=== PATIENT | female | born 1985 | race Caucasian/White ===

== ENCOUNTER 2018-03-24 04:40 | Inpatient (IN) | payer MEDICAID ==
[~2018-03-24 04:40] MED LIST: Oxytocin/Normal Saline 30 UNIT/500 ML BAG ONE; Penicillin G Potassium 5,000,000 Unit Vial ONE
[2018-03-24] MEDS ORDERED: Lactated Ringers 1,000 ML IV SCH (04:45)
[2018-03-24] MEDS ORDERED: Penicillin G Potassium 5 MILLUNITS in Sodium Chloride 0.9% 100 ML IV ONE (05:41)
[2018-03-24] MEDS ORDERED: Misoprostol 400 MCG (4 X 100 MCG TAB) RECTAL PRN (06:34)
[2018-03-24] MEDS ORDERED: Zolpidem 5 MG Tab PO PRN (06:34)
[2018-03-24] MEDS ORDERED: Sodium Chloride 0.9% 10 ML Syringe FLUSH PRN (06:34)
[2018-03-24] MEDS ORDERED: Tranexamic Acid 1,000 MG in Sodium Chloride 0.9% 100 ML IV PRN (06:34)
[2018-03-24] MEDS ORDERED: Docusate Sodium 100 MG Cap PO PRN (06:34)
[2018-03-24] MEDS ORDERED: Benzocaine/Menthol 20%-0.5% Spray 56 GM Canister TOP PRN (06:34)
[2018-03-24] MEDS ORDERED: Acetaminophen 325 MG Tab PO PRN (06:34)
[2018-03-24] MEDS ORDERED: Carboprost Tromethamine 250 MCG/1 ML Amp IM PRN (06:34)
[2018-03-24] MEDS ORDERED: Simethicone 80 MG Tab.Chew PO PRN (06:34)
[2018-03-24] MEDS ORDERED: Oxytocin 10 Units/1 ML SDV IM PRN (06:34)
[2018-03-24] MEDS ORDERED: Oxytocin/Normal Saline 30 UNIT/500 ML BAG IV SCH (07:00)
--- NOTE | 2018-03-24 07:09 | DEL ---
DATE: 03/24/2018 LOCATION: [facility]. DISCUSSION: The patient has proceeded on quickly to complete dilation. She does have evidence of moderate meconium-stained fluid. heart tones remain category 1 with nice accelerations and moderate variability. The patient has been able to proceed on very nicely with a normal spontaneous vaginal delivery. There were no episiotomy and no lacerations. She did have a tight nuchal cord, and we do note that the tight nuchal cord was avulsed when we attempted to slip the cord over the neck, and therefore, we did just proceed onto expedite the vaginal delivery and then clamp the cord on the baby as well as on the patient shortly after delivery. She does have a viable baby boy with scores of 8 and 9 and the weight was later reported as 8 pounds 7 ounces. The baby was very thoroughly suctioned on the perineum as well as at delivery. As mentioned above, there were no episiotomy and no lacerations sustained. The placenta was spontaneous and intact. A sample of cord blood was obtained of course. The patient has tolerated the procedure well, and the patient and the mother remained very stable in the delivery room. The patient will be bottle feeding. The patient has seen Dr. Conway one time prenatally, and I understand that Dr. Conway will also be following the patient in the period. Estimated blood loss was approximately 250 mL. Sponge count and instrument count also were reported as correct. [facility] /[id number]
[2018-03-24] MEDS ORDERED: Diphtheria,Pertussis(Acell),Tetanus Vaccine 0.5 ML SDV IM ONE (07:39)
--- NOTE | 2018-03-24 08:09 | HP ---
LOCATION: [facility]. HISTORY OF PRESENT ILLNESS: This patient is a 32-year-old 7, para 4 patient, who comes to Labor and Delivery early in the morning of 03/24/2018. She does state that she had a large gush of fluid or spontaneous rupture of membranes at approximately 2:00 a.m. at home today. She does live in the [place] area I understand. She has had only 1 visit with this and that was with Dr. Conway at our clinic in [place] and that was in November. Those records are in the [facility] system. Those records revealed that she is immune to rubella and that she is GBS positive. She is also O positive and HIV negative. The patient intends to bottle feed. The patient has been taking vitamins and adhering to healthy nutrition. She denies any other problems with the that she is aware of; however, she has had only that 1 visit, has not been seen by any care providers elsewhere. She is in labor and is actually 7 cm dilated when she comes to Labor and Delivery floor. There is evidence of meconium-stained fluid. heart tones are category 1 with nice accelerations and moderate variability. The patient is actively toshia. PAST MEDICAL HISTORY: She denies any knowledge of heart, lung, liver, or kidney disease. PAST SURGICAL HISTORY: Previous surgery consists of herniorrhaphy and LEEP procedure. MEDICATIONS AT PRESENT: vitamins. ALLERGIES: None known. FAMILY HISTORY: Noncontributory. SOCIAL HISTORY: The patient is here with her other family members and this morning. She is a nonsmoker and denies the usage of any alcohol or street drugs during the . PHYSICAL EXAMINATION: Vital Signs: Admission blood pressures have been in the 153/94 to 96 range and 155/92 range, and we will continue to follow these blood pressures very closely. General: The patient does deny any headache incidentally. Lungs: Clear to A. Heart: Regular rhythm without murmur. Abdomen: Soft, gravid, and heart tones are category 1. Estimated weight is 8-1/2 pounds. There is negative CVA tenderness. Pelvic: Initial pelvic exam by the nurses reveals her to be 7 cm dilated with meconium present. My examination short time later reveals her to be completely dilated in Labor and Delivery, and actually, we have helped with gentle digital pressure push up on a small anterior cervical lip to make her completely dilated. Vertex was at +1 station when she began pushing. Extremities: Negative. IMPRESSION: This patient has an estimated date of delivery based on an earlier 18-week ultrasound of 03/28/2018. The patient would apparently be at approximately 39 weeks 3 days' gestation based on her 1 previous visit. We do anticipate spontaneous vaginal delivery. She has been given penicillin G, but has only received 1 dose before delivery since she is GBS positive. The patient intends to bottle feed. We do anticipate spontaneous vaginal delivery as mentioned above. The baby would be thoroughly suctioned at delivery of course. All of her questions have been answered. [facility] /[id number]
[2018-03-24] MEDS: Ibuprofen 800 MG Tab PO PRN ×2 (09:18→20:04)
[2018-03-24] MEDS: Prenatal Multivitamin with Calcium/Folic Acid/Iron Tab PO SCH (09:19)
--- NOTE | 2018-03-24 12:51 | HP ---
ADDENDUM: This is an addendum to my previously dictated history and physical several hours ago. I have thoroughly discussed the patient with Dr. Callie Conway who will be following the patient . I would like to clarify the medical record, and earlier, I stated that her extremities were negative. However, actually her extremities do reveal some significant superficial varicosities of both lower extremities, which seem to be somewhat more pronounced on the right side. Also, we will be encouraging and having her do gradual progressive ambulation in the immediate period. She will certainly contact us at once if any questions or problems or worsening of her lower extremities while she is at home. Also, we will continue to perform close surveillance of all of her blood pressures since she did have some moderate hypertension on admission. Her preeclampsia labs are also pending at the present time. [facility] /[id number]
[2018-03-25] MEDS: Prenatal Multivitamin with Calcium/Folic Acid/Iron Tab PO SCH (08:48)
[2018-03-25] MEDS: Ibuprofen 800 MG Tab PO PRN ×2 (08:48→18:43)
--- NOTE | 2018-03-25 10:15 | PCM.SN ---
- Free Text/Narrative Note: DOS: 03-25-18 PPD #1 s/p @ term without complications doing well. flow decreasing minimal cramping eating well, voiding, passing flatus, stooling well VSS afebrile bottlefeeding reviewed + MDMA UDS pt denies any illicit drug use she has been using some OTC muscle rub from [employer] [facility] Has not been taking many other OTC agents. Discussed that it is a preliminary result and may be a false positive confirmatory testing is pending. she is aware of social human services assistants consult pending re: this. hgb 10.9 plan for continue routine cares and orders, and plan for discharge home tomorrow. All questions answered. Haily happy with plan. b
[2018-03-26] MEDS: Prenatal Multivitamin with Calcium/Folic Acid/Iron Tab PO SCH (08:46)
[2018-03-26] MEDS: Ibuprofen 800 MG Tab PO PRN (08:46)
--- NOTE | 2018-03-26 16:33 | DISCH ---
ADMISSION DIAGNOSES: 1. Intrauterine at approximately 39 and 3/7 weeks' gestation based on one previous visit, confirmed with an 18-week ultrasound. 2. Limited care. 3. Group B streptococcus positive with one dose penicillin prophylaxis given. 4. History of loop electrosurgical excision procedure. 5. G7, P4. 6. Maternal UDS positive for MDMA upon admission. Questionable false-positive with confirmatory test pending and [employer] involved. DISCHARGE DIAGNOSES: 1. Intrauterine at approximately 39 and 3/7 weeks' gestation based on one previous visit, confirmed with an 18-week ultrasound, delivered via normal spontaneous vaginal delivery. 2. Limited care. 3. Group B streptococcus positive with one dose penicillin prophylaxis given. 4. History of loop electrosurgical excision procedure. 5. G7, P5. 6. Maternal UDS positive for MDMA upon admission. Questionable false-positive with confirmatory test pending and [employer] involved. 7. Tight nuchal cord x2, avulsed upon attempt to reduce bluntly with subsequent uncomplicated delivery of the baby and cord clamping. PROCEDURE PERFORMED: Nonstress test followed by normal spontaneous vaginal delivery per Dr. Blackburn. HISTORY OF PRESENT ILLNESS: Please see H and P. SUMMARY OF HOSPITAL COURSE: The patient was admitted on the above date with the above diagnoses and underwent a normal spontaneous vaginal delivery yielding a male; scores of 8 and 9; weighing 8 pounds 7 ounces, 3825 g, with an EBL of 250 mL. Please see delivery note for more information. day #1, please see progress note. day #2, the date of discharge, nursing staff and the patient had no concerns. She feels that her pain is well controlled on current medications. She denies fevers or chills, headaches or blurry vision, lightheadedness or dizziness, shortness of breath or chest pain, sharp abdominal pains, or erythema or tenderness in any extremity. She does note edema in her lower extremities bilaterally. She denies difficulty with urination. She is passing gas and has had a bowel movement. Her lochia continues to improve and has no foul smell. She is tolerating a general diet and is able to ambulate without difficulty. The patient did inquire about the process of tubal ligation. She was instructed to discuss this with the provider that she will be following up with in [place]. OBJECTIVE: Vital Signs: Temperature 98.9 Fahrenheit, heart rate 98, blood pressure 139/77, respiratory rate 16, and oxygen saturation 99% on room air. General: Alert and in no acute distress. Heart: Regular rate and rhythm. S1 and S2. Lungs: Clear to auscultation bilaterally with normal respiratory effort. Abdomen: Soft, nontender, and nondistended. The uterus is firm and one fingerbreadth below the umbilicus. No excessive tenderness by palpation. Neurologic: No obvious neurologic deficits. Extremities: Edema of +1 noted in the lower extremities bilaterally, with prominent superficial varicosities. No tenderness to palpation of the calves or erythema noted. Skin: Warm, dry, and well perfused. LABORATORY DATA: Last drawn on day #1: White blood cells 10.8, hemoglobin 10.9, platelets 222. CONDITION ON DISCHARGE: Good. DISPOSITION: Home, self-care. DISCHARGE INSTRUCTIONS: 1. Diet as tolerated. 2. Activity: No lifting more than 20 pounds. No sit-ups, straining, or strenuous activities. Discussed pelvic rest for the next 6 weeks with immediate return to fertility. 3. Reasons to return or go to the emergency room were discussed with the patient in detail including but not limited to temperature greater than 100.4 Fahrenheit, red hot tender breast, increasing pain, vaginal bleeding, or foul-smelling discharge. DISCHARGE MEDICATIONS: 1. Noap-fhi-noymibw Tylenol and ibuprofen as needed for pain. 2. vitamins x6 weeks. It was discussed with the patient reasons to return or go to the emergency room in regard to her , and she was instructed to schedule a followup in [place] for her baby on 03/30/2018 for a well-child and weight check, as well as schedule a 6-week visit for herself in [place]. The patient expressed understanding and is in agreement with the above plan, and all of her questions were answered. The history, physical, assessment and plan are per Dr. Conway; and this note is being scribed for Dr. Conway. [facility] /[id number]
== END 2018-03-26 10:30 | disposition home or self-care (01) | DRG 775 ==
LOC: DL.OBCHECK 04:40 → DL.OB 05:00 → OBSVTOIN 05:55 → DL.OB 05:55
PROVIDERS: ADMIT Obstetrics & Gynecology; ATTEND Family Medicine
PROC: 10E0XZZ Delivery of Products of Conception, External Approach (ICD-10-PCS; principal; 2018-03-24)
DX: O42.02 Full-term premature rupture of membranes, onset of labor within 24 hours of rupture (principal); O99.824 Streptococcus B carrier state complicating childbirth; O77.0 Labor and delivery complicated by meconium in amniotic fluid; O69.1XX0 Labor and delivery complicated by cord around neck, with compression, not applicable or unspecified; O87.4 Varicose veins of lower extremity in the puerperium; Z3A.39 39 weeks gestation of pregnancy; Z37.0 Single live birth
CPT/HCPCS: 36415; 51701; 59409; 80305; 82570; 83615; 84156; 84450; 84460; 84520; 84550; 85025; 85027; 90715; A9270-GY; G0010; J2540; J2590; J7050; J7120